=== PATIENT | male | born 1960 | race Caucasian/White ===

== ENCOUNTER 2017-09-22 12:10 | Inpatient (IN) | payer OTHER ==
[~2017-09-22] VITALS: Ht 188 cm; Wt 68.2 kg
[2017-09-22 12:14] VITALS: BP 124/75; PULSE 81; RESP 23; TEMP 98.5; O2SAT 98
[2017-09-22] MEDS ORDERED: ONDANSETRON HCL 4 MG/2 ML VIAL IV PUSH ONE (12:30)
[2017-09-22] MEDS ORDERED: MORPHINE SULFATE 2 MG/ML SYRINGE IV PUSH ONE (12:30)
[2017-09-22] MEDS ORDERED: TETANUS/DIPHTHERIA TOXOID ADULT 0.5 ML VIAL IM ONE (12:30)
[2017-09-22 12:50] LABS: AUTOMATED NEUTROPHIL # 6.1 TH/MM3 (1.8-7.7); BASOPHIL # 0.1 TH/MM3 (0-0.2); BASOPHIL % 0.9 % (0.0-2.0); EOSINOPHIL # 0.1 TH/MM3 (0-0.4); EOSINOPHIL % 1.5 % (0.0-4.0); HEMOGLOBIN 12.2 GM/DL (13.0-17.0); LYMPH % 24.9 % (9.0-44.0); LYMPHOCYTE # 2.3 TH/MM3 (1.0-4.8); MEAN CELL VOLUME 86.6 FL (80.0-100.0); MEAN CORPUSCULAR HEMOGLOBIN 29.3 PG (27.0-34.0); MEAN CORPUSCULAR HGB CONC 33.8 % (32.0-36.0); MEAN PLATELET VOLUME 8.7 FL (7.0-11.0); MONO % 7.5 % (0.0-8.0); MONOCYTE # 0.7 TH/MM3 (0-0.9); NEUT % 65.2 % (16.0-70.0); PLATELET COUNT 280 TH/MM3 (150-450); RED BLOOD COUNT 4.15 MIL/MM3 (4.50-5.90); RED CELL DISTRIBUTION WIDTH 12.6 % (11.6-17.2); WHITE BLOOD COUNT 9.3 TH/MM3 (4.0-11.0)
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
[2017-09-22 13:20] LABS: BICARBONATE 27.8 MEQ/L (21.0-32.0); CALCIUM 8.6 MG/DL (8.5-10.1); CREATININE 1.05 MG/DL (0.60-1.30); MAGNESIUM 1.9 MG/DL (1.5-2.5)
[2017-09-22] MEDS ORDERED: HYDROmorphone HCL PF 1 MG/ML VIAL IV PUSH ONE (13:30)
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
[2017-09-22] MEDS ORDERED: HYDROmorphone HCL PF 2 MG/ML VIAL IV PUSH ONE ×2 (13:45→16:45)
[2017-09-22] MEDS: SODIUM CHLOR 0.9% 1000 ML INJ 1,000 ML IV SCH ×2 (13:49→23:49)
[2017-09-22] MEDS ORDERED: ONDANSETRON HCL 4 MG/2 ML VIAL IVP PRN (14:00)
[2017-09-22] MEDS ORDERED: NALOXONE HCL 0.4 MG/ML AMP IV PUSH PRN (14:00)
[2017-09-22] MEDS ORDERED: SODIUM CHLORIDE 0.9% FLUSH 10 ML FLUSH IV FLUSH PRN (14:00)
[2017-09-22] MEDS ORDERED: ACETAMINOPHEN/HYDROcodone 325 MG/10 MG TAB PO PRN (14:00)
[2017-09-22 14:18] VITALS: BP 129/69; PULSE 80; RESP 18; TEMP 98.3; O2SAT 98
[2017-09-22 14:41] VITALS: BP 133/85; PULSE 71; RESP 15; O2SAT 97
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
[2017-09-22] MEDS ORDERED: NICOTINE 21 MG/24 HR PATCH T-DERMAL ONE (16:45)
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
[2017-09-22 20:00] VITALS: BP 130/78; PULSE 79; RESP 18; TEMP 97.9; O2SAT 97
[2017-09-22] MEDS: oxyCODONE/ACETAMINOPHEN 10 MG/325 MG TAB PO PRN (20:39)
[2017-09-22] MEDS ORDERED: INSULIN HUMAN REGULAR 1,000 UNITS/10 ML VIAL SQ PRN (22:30)
[2017-09-22] MEDS ORDERED: METOPROLOL TARTRATE 25 MG TAB PO PRN (22:30)
[2017-09-22] MEDS ORDERED: SODIUM CHLORID 0.9% 500 ML IV PRN (22:30)
[2017-09-22] MEDS ORDERED: LACTATED RINGER'S 1000 ML IV PRN (22:30)
[2017-09-22] MEDS ORDERED: POVIDONE IODINE 5% (ANTISEPSIS KIT) 4 APPLICATIONS EACH NARE PRN (22:30)
[2017-09-22] MEDS ORDERED: CHLORHEXIDINE GLUCONATE 2 % 1 PACK (2 CLOTHS) TOPICAL PRN (22:30)
[2017-09-22] MEDS: HYDROmorphone HCL PF 2 MG/ML VIAL IV PUSH PRN (22:31)
[2017-09-22] MEDS: SODIUM CHLORIDE 0.9% FLUSH 10 ML FLUSH IV FLUSH SCH (22:31)
[2017-09-23 00:01] VITALS: BP 148/80; PULSE 84; RESP 18; TEMP 98; O2SAT 98
[2017-09-23] MEDS: oxyCODONE/ACETAMINOPHEN 10 MG/325 MG TAB PO PRN ×5 (00:52→22:55)
[2017-09-23] MEDS: HYDROmorphone HCL PF 2 MG/ML VIAL IV PUSH PRN ×4 (02:33→19:48)
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
[2017-09-23] MEDS ORDERED: ACETAMINOPHEN 1000 MG/100 ML 100 ML IV ONE (06:56)
[2017-09-23] MEDS ORDERED: VANCOMYCIN HCL 1000 MG VIAL ONE (07:05)
[2017-09-23] MEDS ORDERED: SODIUM CHLOR 0.9% 250 ML INJ 250 ML ONE (07:05)
[2017-09-23] MEDS ORDERED: GENTAMICIN SULFATE 80 MG/2 ML VIAL ONE (07:05)
[2017-09-23] MEDS ORDERED: ceFAZolin INJ 1,000 MG VIAL ONE (07:05)
[2017-09-23] MEDS ORDERED: BUPIVACAINE/EPINEPHRINE 0.5% PF 10 ML VIAL ONE (07:06)
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
[2017-09-23] MEDS: SODIUM CHLORIDE 0.9% FLUSH 10 ML FLUSH IV FLUSH SCH ×2 (09:00→19:48)
[2017-09-23] MEDS: REMOVE OLD PATCH T-DERMAL SCH (09:00)
[2017-09-23] MEDS ORDERED: diphenhydrAMINE HCL 25 MG CAP PO PRN (09:45)
--- NOTE | 2017-09-23 09:50 | PD.OP ---
cc: Segrey Stock MD Operative Report Date of Surgery: September 23, 2017 Preoperative Diagnosis: Left hip intertrochanteric fracture, bicondylar left tibial plateau fracture Postoperative Diagnosis: Procedure: Closed reduction and external fixation of left tibia bicondylar plateau fracture , intramedullary nail fixation left hip intertrochanteric fracture Surgeon: Sergey Stock Visual Designer(s): DOLORES Holloway PA-C The surgical procedure was assisted by my physician assistant scientist. My P.A. presence was necessary throughout this case for the manipulation and positioning of the surgical extremity. My P.A. was assisting me throughout the duration of this procedure. The skill set of a physician assistant scientist was medically necessary to complete this procedure. During the surgical case the surgical clinical reviewer was working at the back table and the physician assistant scientist was directly assisting me. Operation and Findings: Implants used: Orthofix, Biomet 13 mm 130 trochanteric nail This patient sustained an injury resulting in comminuted fractures of [left tibial plateau. He also had a left hip intertrochanteric fracture]. Patient was seen and evaluated preoperatively and found to have too much swelling to proceed with open reduction internal fixation of tibial plateau. Risk and benefits of surgery were discussed in depth with patient and informed consent was confirmed. Surgical site was marked. Patient was brought to operating room and placed on the OR table. Patient was given IV sedation and GETA. Patient received IV antibiotics and timeout procedure was performed. Operative leg was prepped with alcohol followed by Hibiclens and draped in the usual sterile fashion. Two small incisions were made along the anterior femur and the tibia. Soft tissue was dissected bluntly. Cannulas were placed down to the cortex of bone. Pin sites were predrilled. Synthes HEATH-coated pins were placed into the femur and tibia. Fluoroscopy was used to confirm appropriate pin placement. An external fixator construct was now created with clamps and bars. Next attention was turned to reduction. Traction was applied. Fracture was manipulated. Good alignment of the fracture was obtained. Fluoroscopy was used to confirm appropriate alignment of fracture. The external fixator was now tightened to hold reduction. Sterile dressings were applied. The soft tissue was reevaluated. Patient did have swelling around the knee and calf but compartments were soft and compressible with no signs of compartment syndrome. Patient was now repositioned onto a fracture table. Left hip was prepped with alcohol followed by DuraPrep and draped in usual sterile fashion procedure began with reduction of fracture. Traction was applied. The leg was manipulated to achieve reduction. Excellent reduction was achieved. Fluoroscopy was used to confirm reduction. A three inch incision was made proximal to the trochanter. Subcutaneous tissue was dissected bluntly. Guidepin was placed at the tip of the trochanter and advanced into the femoral canal. Fluoroscopy confirmed appropriate guidepin placement. A opening reamer was placed over the guidepin. The Biomet 13 mm 130 nail was attached to the insertion handle. Nail was now placed through the tip of the trochanter into the femoral canal. Fluoroscopy confirmed appropriate nail placement. A second incision was made over the lateral thigh. Cannulas were placed through the insertion handle down to the femur. Guidepin was now placed through the femoral nail into the center of the femoral head. Fluoroscopy confirmed appropriate guidepin placement. Screw length was measured. Cannulated drill was placed over the guidepin. Appropriate length lag screw was now placed. Traction was released and compression was applied. The set screw was now tightened in dynamic mode. Using the insertion handle as a guide a distal interlocking screw was drilled and placed. Final fluoroscopy revealed well aligned fracture with well-placed hardware. Incision was closed with 3-0 Vicryl and nirmal. Sterile dressings were applied. Patient was awakened and transferred to recovery room. Sergey Stock MD September 23, 2017 09:50
[2017-09-23] MEDS ORDERED: DO NOT ADM ANY ANTICOAGULANT DRUGS PRN (10:10)
[2017-09-23] MEDS ORDERED: *MEPERIDINE 25 MG INJ VIAL PERIprocedural Use ONLY ONE (10:14)
[2017-09-23] MEDS ORDERED: MIDAZOLAM HCL 2 MG/2 ML VIAL ONE (10:16)
[2017-09-23] MEDS ORDERED: *HYDROmorphone PF 0.5 MG/0.5 ML PERIprocedure ONLY ONE ×3 (10:53→11:31)
[2017-09-23] MEDS ORDERED: Post-op Orders (for Pharmacy) XX ONE (11:03)
[2017-09-23] MEDS: LACTATED RINGER'S 1000 ML INJ 1,000 ML IV SCH ×2 (11:10→23:30)
[2017-09-23] MEDS ORDERED: DEXAMETHASONE SOD PHOS 20 MG/5 ML VIAL IV PUSH ONE (11:15)
[2017-09-23] MEDS: KETOROLAC TROMETHAMINE 30 MG/ML (IVP) VIAL IVP SCH ×3 (11:30→22:55)
[2017-09-23 12:00] VITALS: BP 165/75; PULSE 73; RESP 18; TEMP 98.2; O2SAT 98
[2017-09-23] MEDS ORDERED: PROPOFOL 200 MG/20 ML AMP IV ONE (12:00)
[2017-09-23] MEDS ORDERED: ONDANSETRON HCL 4 MG/2 ML VIAL IV ONE (12:00)
[2017-09-23] MEDS ORDERED: PHENYLEPH/NS 1000 MCG/10 ML SYR IV ONE (12:00)
[2017-09-23] MEDS ORDERED: DEXAMETHASONE SOD PHOS 4 MG/ML VIAL IV ONE (12:00)
[2017-09-23] MEDS: NICOTINE 21 MG/24 HR PATCH T-DERMAL SCH (12:51)
[2017-09-23] MEDS: SODIUM CHLOR 0.9% 1000 ML INJ 1,000 ML IV SCH ×2 (12:54→19:49)
[2017-09-23 13:06] LABS: AUTOMATED NEUTROPHIL # 12.9 TH/MM3 (1.8-7.7); BASOPHIL % 0.2 % (0.0-2.0); HEMATOCRIT 29.2 % (39.0-51.0); HEMOGLOBIN 9.9 GM/DL (13.0-17.0); LYMPH % 3.3 % (9.0-44.0); LYMPHOCYTE # 0.5 TH/MM3 (1.0-4.8); MEAN CELL VOLUME 87.7 FL (80.0-100.0); MEAN CORPUSCULAR HEMOGLOBIN 29.9 PG (27.0-34.0); MEAN CORPUSCULAR HGB CONC 34.1 % (32.0-36.0); MEAN PLATELET VOLUME 8.9 FL (7.0-11.0); MONO % 2.7 % (0.0-8.0); MONOCYTE # 0.4 TH/MM3 (0-0.9); NEUT % 93.8 % (16.0-70.0); PLATELET COUNT 201 TH/MM3 (150-450); RED BLOOD COUNT 3.33 MIL/MM3 (4.50-5.90); RED CELL DISTRIBUTION WIDTH 12.7 % (11.6-17.2); WHITE BLOOD COUNT 13.8 TH/MM3 (4.0-11.0)
[2017-09-23 13:29] LABS: ALBUMIN 3.2 GM/DL (3.4-5.0); ALT (GPT) 23 U/L (12-78); AST (GOT) 21 U/L (15-37); BICARBONATE 26.5 MEQ/L (21.0-32.0); BLOOD UREA NITROGEN 7 MG/DL (7-18); CALCIUM 8.1 MG/DL (8.5-10.1); CHLORIDE 102 MEQ/L (98-107); CREATININE 0.85 MG/DL (0.60-1.30); GLOMERULAR FILTRATION RATE 93 ML/MIN (>89); GLUCOSE,RANDOM 136 MG/DL (74-106); SODIUM (NA) 135 MEQ/L (136-145)
[2017-09-23 13:32] LABS: ALKALINE PHOSPHATASE 60 U/L (45-117); TOTAL BILIRUBIN ADULT 0.6 MG/DL (0.2-1.0); TOTAL PROTEIN 6.4 GM/DL (6.4-8.2)
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
[2017-09-23] MEDS ORDERED: ZOLPIDEM TARTRATE 5 MG TAB PO PRN (13:45)
--- NOTE | 2017-09-23 14:08 | RADRPT ---
EXAM DATE/TIME: 09/23/2017 09:22 [facility] COMPARISON: TIBIA/FIBULA LEFT (AP/LAT), September 22, 2017, 12:52. INDICATIONS : Closed reduction external fixation left knee. MEDICAL HISTORY : None. SURGICAL HISTORY : None. ENCOUNTER: Initial ACUITY: 1 day PAIN SCORE: Non-responsive. LOCATION: Left Knee FINDINGS: 2 images recorded digitally in the operating room oozing C-arm CONCLUSION: Intraoperative images. Len Serrano MD on September 23, 2017 at 14:05 Board Certified Radiologist. This report was verified electronically.
--- NOTE | 2017-09-23 14:08 | RADRPT ---
EXAM DATE/TIME: 09/23/2017 09:22 [facility] COMPARISON: No previous studies available for comparison. INDICATIONS : ORIF left troch nail. MEDICAL HISTORY : None. SURGICAL HISTORY : None. ENCOUNTER: Initial ACUITY: 1 day PAIN SCORE: Non-responsive. LOCATION: Left Hip FINDINGS: 4 images were recorded digitally in the operating room using C-arm for placement of intramedullary ro d and trochanteric nail. CONCLUSION: Intraoperative images. Len Serrano MD on September 23, 2017 at 14:06 Board Certified Radiologist. This report was verified electronically.
[2017-09-23 15:25] VITALS: BP 141/79; PULSE 75; RESP 18; TEMP 97.2; O2SAT 94
--- NOTE | 2017-09-23 15:31 | EKG ---
Date Performed: 09/22/2017 Time Performed: 22:34:38 PTAGE: 57 years EKG: Sinus rhythm POSSIBLE RIGHT VENTRICULAR CONDUCTION DELAY POSSIBLE LEFT VENTRICULAR HYPERTROPHY ABNORMAL ECG NO PREVIOUS TRACING Short sinus pauses. DOCTOR: Priscila Chaney Interpretating Date/Time 09/23/2017 15:30:07
--- NOTE | 2017-09-23 17:21 | RADRPT ---
EXAM DATE/TIME: 09/23/2017 16:50 [facility] COMPARISON: KNEE LEFT LTD (1 OR 2VWS), September 23, 2017, 9:22. INDICATIONS : Closed reduction external fixation left knee. RADIATION DOSE: 7.29 CTDIvol (mGy) MEDICAL HISTORY : None SURGICAL HISTORY : None. ENCOUNTER: Subsequent ACUITY: 2 days PAIN SCALE: 4/10 LOCATION: Left Knee TECHNIQUE: Volumetric scanning of the knee was performed. Using automated exposure control and adjustment of th e mA and/or kV according to patient size, radiation dose was kept as low as reasonably achievable to obtain optimal diagnostic quality images. DICOM format image data is available electronically for re view and comparison. FINDINGS: There is comminuted fractures of the proximal tibia and fibula. There is mild varus angulation of th e major fracture components. In the tibia there is a transverse fracture component causing angulatio n and lateral displacement, a dominant longitudinal fracture through the midline lateral metaphysis e xtending to the articular surface, at least 3 fracture lines extending to the tibial spine, inferior impaction of the lateral tibial plateau and 1.2 cm widening of the largest intra-articular fracture l ine in AP dimension. In the proximal fibula, there are multiple comminuted fracture lines in the metaphysis and epiphysis mild anterior angulation. There is a fat/fluid level in suprapatellar bursa. CONCLUSION: Comminuted intra-articular fractures of the proximal tibia with displacement and angulation at least 3 fracture lines extend intra-articular. There is also a transverse fracture component through the m etaphysis. Multiple comminuted fractures of the proximal fibula. Len Serrano MD on September 23, 2017 at 17:14 Board Certified Radiologist. This report was verified electronically.
[2017-09-23] MEDS: ceFAZolin 2 GM PREMIX 50 ML IV SCH (17:22)
[2017-09-23 20:00] VITALS: BP 125/66; PULSE 82; RESP 18; TEMP 98.8; O2SAT 96
[2017-09-24 00:01] VITALS: BP_SYST 122; BP_SYST 142; BP_DIAS 57; BP_DIAS 67; PULSE 69; PULSE 84; RESP 18; TEMP 97.7; TEMP 99.2; O2SAT 95; O2SAT 96
[2017-09-24] MEDS: HYDROmorphone HCL PF 2 MG/ML VIAL IV PUSH PRN ×5 (00:33→23:05)
[2017-09-24] MEDS: ceFAZolin 2 GM PREMIX 50 ML IV SCH ×2 (00:33→08:55)
[2017-09-24] MEDS: oxyCODONE/ACETAMINOPHEN 10 MG/325 MG TAB PO PRN ×5 (02:51→20:25)
[2017-09-24 03:59] LABS: AUTOMATED NEUTROPHIL # 12.9 TH/MM3 (1.8-7.7); BASOPHIL % 0.1 % (0.0-2.0); HEMATOCRIT 24.9 % (39.0-51.0); HEMOGLOBIN 8.7 GM/DL (13.0-17.0); LYMPH % 5.8 % (9.0-44.0); LYMPHOCYTE # 0.9 TH/MM3 (1.0-4.8); MEAN CELL VOLUME 87.6 FL (80.0-100.0); MEAN CORPUSCULAR HEMOGLOBIN 30.5 PG (27.0-34.0); MEAN CORPUSCULAR HGB CONC 34.8 % (32.0-36.0); MEAN PLATELET VOLUME 8.9 FL (7.0-11.0); MONO % 6.8 % (0.0-8.0); NEUT % 87.3 % (16.0-70.0); PLATELET COUNT 176 TH/MM3 (150-450); RED BLOOD COUNT 2.84 MIL/MM3 (4.50-5.90); RED CELL DISTRIBUTION WIDTH 12.4 % (11.6-17.2); WHITE BLOOD COUNT 14.8 TH/MM3 (4.0-11.0)
[2017-09-24 04:00] VITALS: BP 126/63; PULSE 77; RESP 18; TEMP 98.3; O2SAT 95
[2017-09-24 04:23] LABS: BICARBONATE 27.6 MEQ/L (21.0-32.0); CALCIUM 8.1 MG/DL (8.5-10.1); CREATININE 0.91 MG/DL (0.60-1.30)
[2017-09-24] MEDS: KETOROLAC TROMETHAMINE 30 MG/ML (IVP) VIAL IVP SCH ×4 (04:47→23:05)
[2017-09-24] MEDS: SODIUM CHLOR 0.9% 1000 ML INJ 1,000 ML IV SCH ×2 (05:49→14:13)
--- NOTE | 2017-09-24 07:08 | PD.ORT.PN ---
Subjective Subjective Remarks Pain controlled. Swelling improved. No new complaints Objective Vitals Vital Signs Date Time Temp Pulse Resp B/P (MAP) Pulse Ox O2 Delivery O2 Flow Rate FiO2 09/24/17 04:00 98.3 77 18 126/63 (84) 95 09/24/17 00:01 99.2 84 18 122/57 (78) 96 09/23/17 20:00 98.8 82 18 125/66 (85) 96 09/23/17 15:25 97.2 75 18 141/79 (99) 94 09/23/17 12:00 98.2 73 18 165/75 (105) 98 09/23/17 11:30 97.5 84 15 168/87 (114) 100 Nasal Cannula 2 09/23/17 11:15 80 18 162/87 (112) 100 Nasal Cannula 2 09/23/17 11:00 84 20 174/90 (118) 100 Nasal Cannula 2 09/23/17 10:45 78 22 165/82 (109) 100 Nasal Cannula 2 09/23/17 10:30 80 24 177/79 (111) 100 Nasal Cannula 2 09/23/17 10:15 87 25 157/87 (110) 100 Nasal Cannula 2 09/23/17 10:11 98.5 72 20 126/64 (84) 94 Nasal Cannula 2 I/O 09/23/17 09/23/17 09/23/17 09/24/17 09/24/17 09/24/17 07:00 15:00 23:00 07:00 15:00 23:00 Intake Total 990 ml 650 ml Output Total 30 ml 300 ml 900 ml Balance 960 ml -300 ml -250 ml Intake Oral 240 ml 650 ml IV Total 100 ml Other 650 ml Output Urine Total 300 ml 900 ml Estimated Blood Loss 30 ml # Voids 3 # Bowel Movements 0 0 Result Diagram: 09/24/17 0324 09/24/17 0324 Imaging Last 24 hours Impressions Chest X-Ray 09/22/17 1308 Signed Impressions: Service Date/Time: Friday, September 22, 2017 13:10 - CONCLUSION: No acute disease. Sb Noel MD Tibia/Fibula X-Ray 09/22/17 1220 Signed Impressions: Service Date/Time: Friday, September 22, 2017 12:52 - CONCLUSION: Severely comminuted ventricular fracture involving the proximal tibia. Comminuted nondisplaced fracture involving the proximal fibula. Sb Noel MD Hip and Pelvis X-Ray 09/22/17 1220 Signed Impressions: Service Date/Time: Friday, September 22, 2017 14:06 - CONCLUSION: 1. Oblique fracture through the trochanteric region of the proximal left femur. Sb Noel MD Elbow X-Ray 09/22/17 1220 Signed Impressions: Service Date/Time: Friday, September 22, 2017 13:07 - CONCLUSION: No acute fracture or joint dislocation. Sb Noel MD Objective Remarks Left lower extremity: Clean dry dressings over hip. External fixator in place bridging knee. Mild drainage. Swelling of +3 with fracture blisters both medially and laterally over the plateau. Compartments swollen semi-soft. Distally intact sensation with active movement of all toes. Active dorsiflexion plantar flexion of foot Assessment & Plan Assessment and Plan Left intertrochanteric femur fracture status post IM nail POD 1 Left tibial plateau fracture status post external fixation POD 1 Daily dressing changes beginning POD 2 over hip. Pin care twice daily Toradol We will continue to evaluate swelling. One swelling is improved and skin is healthy for her incision we will plan on surgery. This will take 3-5 days at the earliest to be ready Nonweightbearing left lower extremity Stevenson Lan Jr. September 24, 2017 07:08
[2017-09-24 08:00] VITALS: BP 133/64; PULSE 74; RESP 16; TEMP 98.1; O2SAT 98
[2017-09-24] MEDS: REMOVE OLD PATCH T-DERMAL SCH (08:55)
[2017-09-24] MEDS: NICOTINE 21 MG/24 HR PATCH T-DERMAL SCH (08:55)
[2017-09-24] MEDS: SODIUM CHLORIDE 0.9% FLUSH 10 ML FLUSH IV FLUSH SCH ×2 (08:56→20:25)
[2017-09-24] MEDS: ENOXAPARIN SODIUM 40 MG/0.4 ML SYRINGE SQ SCH (08:56)
[2017-09-24 12:00] VITALS: BP 111/72; PULSE 66; RESP 16; TEMP 98.2; O2SAT 97
[2017-09-24] MEDS: LACTATED RINGER'S 1000 ML INJ 1,000 ML IV SCH (12:00)
[2017-09-24 16:00] VITALS: BP 132/60; PULSE 67; RESP 16; TEMP 98.4; O2SAT 97
[2017-09-24 20:00] VITALS: BP 122/60; PULSE 89; RESP 15; TEMP 98.3; O2SAT 98
[2017-09-24] MEDS: MAGNESIUM HYDROXIDE SUSP 30 ML CUP PO PRN (20:33)
[2017-09-24] MEDS ORDERED: DOCUSATE SODIUM 50 MG/SENNA 8.6 MG TAB PO ONE (23:15)
[2017-09-24] MEDS ORDERED: MAGNESIUM HYDROXIDE SUSP 30 ML CUP PO ONE (23:15)
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
[2017-09-25] VITALS: BP 116/57; PULSE 73; RESP 15; TEMP 98.4; O2SAT 94
[2017-09-25] MEDS: LACTATED RINGER'S 1000 ML INJ 1,000 ML IV SCH ×2 (00:30→13:00)
[2017-09-25] MEDS: oxyCODONE/ACETAMINOPHEN 10 MG/325 MG TAB PO PRN ×6 (01:02→22:02)
[2017-09-25] MEDS: SODIUM CHLOR 0.9% 1000 ML INJ 1,000 ML IV SCH ×3 (01:49→21:49)
[2017-09-25] MEDS: HYDROmorphone HCL PF 2 MG/ML VIAL IV PUSH PRN ×6 (03:17→23:39)
[2017-09-25] MEDS: KETOROLAC TROMETHAMINE 30 MG/ML (IVP) VIAL IVP SCH (05:24)
[2017-09-25 08:00] VITALS: BP 149/77; PULSE 79; RESP 17; TEMP 97.9; O2SAT 96
[2017-09-25] MEDS: NICOTINE 21 MG/24 HR PATCH T-DERMAL SCH (09:00)
[2017-09-25] MEDS: REMOVE OLD PATCH T-DERMAL SCH (09:00)
--- NOTE | 2017-09-25 09:04 | PD.ORT.PN ---
Subjective Subjective Remarks Pain controlled. Swelling improved. No new complaints Objective Vitals Vital Signs Date Time Temp Pulse Resp B/P (MAP) Pulse Ox O2 Delivery O2 Flow Rate FiO2 09/25/17 08:00 97.9 79 17 149/77 (101) 96 09/25/17 00:00 98.4 73 15 116/57 (76) 94 09/24/17 20:00 98.3 89 15 122/60 (80) 98 09/24/17 16:00 98.4 67 16 132/60 (84) 97 09/24/17 12:00 98.2 66 16 111/72 (85) 97 I/O 09/24/17 09/24/17 09/24/17 09/25/17 09/25/17 09/25/17 07:00 15:00 23:00 07:00 15:00 23:00 Intake Total 650 ml 1000 ml 450 ml Output Total 900 ml 800 ml 800 ml Balance -250 ml 200 ml -350 ml Intake Oral 650 ml 1000 ml 450 ml Output Urine Total 900 ml 800 ml 800 ml # Bowel Movements 0 0 1 Result Diagram: 09/24/17 0324 09/24/17 0324 Imaging Last 24 hours Impressions Chest X-Ray 09/22/17 1308 Signed Impressions: Service Date/Time: Friday, September 22, 2017 13:10 - CONCLUSION: No acute disease. Sb Noel MD Tibia/Fibula X-Ray 09/22/17 1220 Signed Impressions: Service Date/Time: Friday, September 22, 2017 12:52 - CONCLUSION: Severely comminuted ventricular fracture involving the proximal tibia. Comminuted nondisplaced fracture involving the proximal fibula. Sb Noel MD Hip and Pelvis X-Ray 09/22/17 1220 Signed Impressions: Service Date/Time: Friday, September 22, 2017 14:06 - CONCLUSION: 1. Oblique fracture through the trochanteric region of the proximal left femur. Sb Noel MD Elbow X-Ray 09/22/17 1220 Signed Impressions: Service Date/Time: Friday, September 22, 2017 13:07 - CONCLUSION: No acute fracture or joint dislocation. Sb Noel MD Objective Remarks Left lower extremity: Clean dry dressings over hip. External fixator in place bridging knee. Mild drainage. Swelling of +3 with fracture blisters both medially and laterally over the plateau. Medial blister has lost pressure and is compressed. Compartments swollen semi-soft. Distally intact sensation with active movement of all toes. Active dorsiflexion plantar flexion of foot Assessment & Plan Assessment and Plan Left intertrochanteric femur fracture status post IM nail POD 2 Left tibial plateau fracture status post external fixation POD 2 Daily dressing changes over hip. Pin care twice daily Lovenox Incentive spirometry Toradol We will continue to evaluate swelling. One swelling is improved and skin is healthy for her incision we will plan on surgery. This will take 3-5 days at the earliest to be ready Nonweightbearing left lower extremity Stevenson Lan Jr. September 25, 2017 09:04
[2017-09-25] MEDS: ENOXAPARIN SODIUM 40 MG/0.4 ML SYRINGE SQ SCH (09:41)
[2017-09-25] MEDS: SODIUM CHLORIDE 0.9% FLUSH 10 ML FLUSH IV FLUSH SCH ×2 (09:49→22:01)
[2017-09-25 11:57] VITALS: BP 116/54; PULSE 78; RESP 17; TEMP 97.9; O2SAT 95
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
[2017-09-25 16:00] VITALS: BP 104/55; PULSE 87; RESP 17; TEMP 98.7; O2SAT 98
[2017-09-25 20:00] VITALS: BP 121/74; PULSE 88; RESP 18; TEMP 98.6; O2SAT 95
[2017-09-26] VITALS (7 sets, daily range): BP systolic 114–148; BP diastolic 64–86; PULSE 79–89; RESP 16–19; TEMP 98.3–99.4; O2SAT 93–96
[2017-09-26] MEDS: LACTATED RINGER'S 1000 ML INJ 1,000 ML IV SCH ×2 (01:18→07:58)
[2017-09-26] MEDS: oxyCODONE/ACETAMINOPHEN 10 MG/325 MG TAB PO PRN ×4 (04:38→18:04)
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
[2017-09-26] MEDS: SODIUM CHLOR 0.9% 1000 ML INJ 1,000 ML IV SCH ×2 (07:49→12:51)
[2017-09-26] MEDS: REMOVE OLD PATCH T-DERMAL SCH (07:50)
[2017-09-26] MEDS: ENOXAPARIN SODIUM 40 MG/0.4 ML SYRINGE SQ SCH (07:50)
[2017-09-26] MEDS: NICOTINE 21 MG/24 HR PATCH T-DERMAL SCH (07:50)
[2017-09-26] MEDS: MAGNESIUM HYDROXIDE SUSP 30 ML CUP PO PRN (07:50)
[2017-09-26] MEDS: HYDROmorphone HCL PF 2 MG/ML VIAL IV PUSH PRN ×4 (07:51→20:52)
[2017-09-26] MEDS: SODIUM CHLORIDE 0.9% FLUSH 10 ML FLUSH IV FLUSH SCH ×2 (07:52→20:51)
[2017-09-26] MEDS ORDERED: CYCLOBENZAPRINE HCL 10 MG TAB PO ONE (18:00)
[2017-09-27] VITALS: BP 136/62; PULSE 99; RESP 18; TEMP 98.8; O2SAT 95
[2017-09-27] MEDS: oxyCODONE/ACETAMINOPHEN 10 MG/325 MG TAB PO PRN ×4 (01:44→21:14)
[2017-09-27] MEDS: LACTATED RINGER'S 1000 ML INJ 1,000 ML IV SCH (02:26)
[2017-09-27] MEDS: SODIUM CHLOR 0.9% 1000 ML INJ 1,000 ML IV SCH (02:28)
[2017-09-27 04:00] VITALS: BP 123/75; PULSE 94; RESP 19; TEMP 98.4; O2SAT 95
[2017-09-27] MEDS: HYDROmorphone HCL PF 2 MG/ML VIAL IV PUSH PRN ×3 (05:05→16:08)
--- NOTE | 2017-09-27 06:49 | PD.ORT.PN ---
Subjective Subjective Remarks POD 4 s/p IMN left hip s/p left tib plat exfix doign well. pain controlled Objective Vitals Vital Signs Date Time Temp Pulse Resp B/P (MAP) Pulse Ox O2 Delivery O2 Flow Rate FiO2 09/27/17 05:37 18 09/27/17 04:00 98.4 94 19 123/75 (91) 95 09/27/17 02:26 18 09/27/17 00:00 98.8 99 18 136/62 (86) 95 09/26/17 23:15 Room Air 09/26/17 20:00 98.6 83 19 148/67 (94) 95 09/26/17 18:06 98.6 09/26/17 16:32 99.4 85 16 133/71 (91) 96 09/26/17 12:15 98.7 79 17 114/64 (81) 96 09/26/17 07:47 98.3 84 17 140/69 (92) 95 09/26/17 07:47 Room Air I/O 09/26/17 09/26/17 09/26/17 09/27/17 09/27/17 09/27/17 07:00 15:00 23:00 07:00 15:00 23:00 Intake Total 420 ml 900 ml Output Total 350 ml 750 ml Balance 70 ml 150 ml Intake Oral 420 ml 900 ml Output Urine Total 350 ml 750 ml # Voids 2 # Bowel Movements 0 Result Diagram: 09/24/17 0324 09/24/17 0324 Imaging Last 24 hours Impressions Chest X-Ray 09/22/17 1308 Signed Impressions: Service Date/Time: Friday, September 22, 2017 13:10 - CONCLUSION: No acute disease. Sb Noel MD Tibia/Fibula X-Ray 09/22/17 1220 Signed Impressions: Service Date/Time: Friday, September 22, 2017 12:52 - CONCLUSION: Severely comminuted ventricular fracture involving the proximal tibia. Comminuted nondisplaced fracture involving the proximal fibula. Sb Noel MD Hip and Pelvis X-Ray 09/22/17 1220 Signed Impressions: Service Date/Time: Friday, September 22, 2017 14:06 - CONCLUSION: 1. Oblique fracture through the trochanteric region of the proximal left femur. Sb Noel MD Elbow X-Ray 09/22/17 1220 Signed Impressions: Service Date/Time: Friday, September 22, 2017 13:07 - CONCLUSION: No acute fracture or joint dislocation. Sb Noel MD Objective Remarks Left lower extremity: Clean dry dressings over hip. External fixator in place bridging knee. Mild drainage. Swelling of +2 with fracture blisters both medially and laterally over the plateau. Compartments swollen semi-soft. Distally intact sensation with active movement of all toes. Active dorsiflexion plantar flexion of foot Assessment & Plan Assessment and Plan 1) Left intertrochanteric femur fracture status post IM nail POD 4 2) Left tibial plateau fracture status post external fixation POD 4 Daily dressing changes over hip. Pin care twice daily Lovenox Incentive spirometry Toradol We will continue to evaluate swelling. One swelling is improved and skin is healthy for her incision we will plan on surgery. Nonweightbearing left lower extremity NPO after MN in case swelling is appropriate Jake Hutton PA/Mechanical Engineering Director PA September 27, 2017 06:49
[2017-09-27 08:00] VITALS: BP 134/70; PULSE 84; RESP 18; TEMP 97.6; O2SAT 95
[2017-09-27] MEDS: MAGNESIUM HYDROXIDE SUSP 30 ML CUP PO PRN (08:10)
[2017-09-27] MEDS: ENOXAPARIN SODIUM 40 MG/0.4 ML SYRINGE SQ SCH (08:10)
[2017-09-27] MEDS: NICOTINE 21 MG/24 HR PATCH T-DERMAL SCH (08:12)
[2017-09-27] MEDS: SODIUM CHLORIDE 0.9% FLUSH 10 ML FLUSH IV FLUSH SCH ×2 (08:12→21:14)
[2017-09-27] MEDS: REMOVE OLD PATCH T-DERMAL SCH (08:12)
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
--- NOTE | 2017-09-27 09:56 | HHI.FF ---
Face to Face Verification Diagnosis: (1) Intertrochanteric fracture of left hip (2) Tibia/fibula fracture Physical Therapy Order: Evaluate and Treat, Improve ambulation, Strength and gait training Home Health Nursing Order: Medical education Signs/symptoms of disease process Medication education-adverse effect Nursing assessment with vital signs I have seen patient Gaurav German on 09/27/17. My clinical findings support the need for the requested home health care services because: Deconditioned w/ increased weakness I certify that my clinical findings support that this patient is homebound because: Unsafe to leave home unassisted Suraj Whittaker MD September 27, 2017 09:56
[2017-09-27] MEDS ORDERED: WALKER WHEELS/F1 MIS (09:57)
[2017-09-27 12:00] VITALS: BP 120/58; PULSE 85; RESP 18; TEMP 98.5; O2SAT 95
[2017-09-27 17:00] VITALS: BP 132/62; PULSE 93; RESP 18; TEMP 98; O2SAT 95
[2017-09-27 20:30] VITALS: BP 109/70; PULSE 91; RESP 17; TEMP 99.7; O2SAT 97
[2017-09-28 00:40] VITALS: BP 119/71; PULSE 90; RESP 16; TEMP 98.2; O2SAT 96
[2017-09-28] MEDS: oxyCODONE/ACETAMINOPHEN 10 MG/325 MG TAB PO PRN ×2 (01:15→05:12)
[2017-09-28 04:30] VITALS: BP 112/58; PULSE 97; RESP 17; TEMP 98.7; O2SAT 96
--- NOTE | 2017-09-28 06:50 | PD.ORT.PN ---
Subjective Subjective Remarks POD 5 s/p IMN left hip s/p left tib plat exfix doign well. pain controlled Objective Vitals Vital Signs Date Time Temp Pulse Resp B/P (MAP) Pulse Ox O2 Delivery O2 Flow Rate FiO2 09/28/17 00:40 98.2 90 16 119/71 (87) 96 09/27/17 20:30 99.7 91 17 109/70 (83) 97 09/27/17 17:00 98.0 93 18 132/62 (85) 95 09/27/17 12:00 98.5 85 18 120/58 (78) 95 09/27/17 08:00 97.6 84 18 134/70 (91) 95 I/O 09/27/17 09/27/17 09/27/17 09/28/17 09/28/17 09/28/17 07:00 15:00 23:00 07:00 15:00 23:00 Intake Total 900 ml 480 ml Output Total 750 ml Balance 150 ml 480 ml Intake Oral 900 ml 480 ml Output Urine Total 750 ml # Voids 3 # Bowel Movements 0 Result Diagram: 09/24/17 0324 09/24/17 0324 Imaging Last 24 hours Impressions Chest X-Ray 09/22/17 1308 Signed Impressions: Service Date/Time: Friday, September 22, 2017 13:10 - CONCLUSION: No acute disease. Sb Noel MD Tibia/Fibula X-Ray 09/22/17 1220 Signed Impressions: Service Date/Time: Friday, September 22, 2017 12:52 - CONCLUSION: Severely comminuted ventricular fracture involving the proximal tibia. Comminuted nondisplaced fracture involving the proximal fibula. Sb Noel MD Hip and Pelvis X-Ray 09/22/17 1220 Signed Impressions: Service Date/Time: Friday, September 22, 2017 14:06 - CONCLUSION: 1. Oblique fracture through the trochanteric region of the proximal left femur. Sb Noel MD Elbow X-Ray 09/22/17 1220 Signed Impressions: Service Date/Time: Friday, September 22, 2017 13:07 - CONCLUSION: No acute fracture or joint dislocation. Sb Noel MD Objective Remarks Left lower extremity: Clean dry dressings over hip. External fixator in place bridging knee. Mild drainage. Swelling of +2 with fracture blisters both medially and laterally over the plateau. Compartments swollen semi-soft. Distally intact sensation with active movement of all toes. Active dorsiflexion plantar flexion of foot Assessment & Plan Assessment and Plan 1) Left intertrochanteric femur fracture status post IM nail POD 5 2) Left tibial plateau fracture status post external fixation POD 5 Daily dressing changes over hip. Pin care twice daily Lovenox Incentive spirometry Toradol We will continue to evaluate swelling. One swelling is improved and skin is healthy for her incision we will plan on surgery. Nonweightbearing left lower extremity resume diet today npo after MN plan for surgery tomorrow Jake Hutton/Director Of Medical Staff Services ERNESTO September 28, 2017 06:50
[2017-09-28 08:00] VITALS: BP 117/63; PULSE 86; RESP 18; TEMP 98.1; O2SAT 97
[2017-09-28] MEDS: SODIUM CHLORIDE 0.9% FLUSH 10 ML FLUSH IV FLUSH SCH ×2 (08:52→21:00)
[2017-09-28] MEDS: NICOTINE 21 MG/24 HR PATCH T-DERMAL SCH (08:53)
[2017-09-28] MEDS: REMOVE OLD PATCH T-DERMAL SCH (08:53)
[2017-09-28] MEDS: HYDROmorphone HCL PF 2 MG/ML VIAL IV PUSH PRN (09:03)
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
[2017-09-28 12:00] VITALS: BP 114/64; PULSE 84; RESP 18; TEMP 98.2; O2SAT 94
[2017-09-28] MEDS: KETOROLAC TROMETHAMINE 30 MG/ML (IVP) VIAL IV PUSH SCH ×2 (12:56→18:01)
[2017-09-28 16:00] VITALS: BP 107/55; PULSE 91; RESP 18; TEMP 98.7; O2SAT 95
[2017-09-28] MEDS: oxyCODONE/ACETAMINOPHEN 5 MG/325 MG TAB PO PRN (18:28)
[2017-09-28 20:25] VITALS: BP 127/65; PULSE 96; RESP 16; TEMP 98.7; O2SAT 98
[2017-09-29 00:25] VITALS: BP 112/59; PULSE 80; RESP 16; TEMP 98.2; O2SAT 95
[2017-09-29] MEDS: oxyCODONE/ACETAMINOPHEN 10 MG/325 MG TAB PO PRN ×4 (01:56→20:52)
[2017-09-29] MEDS ORDERED: LACTATED RINGER'S 1000 ML IV PRN (04:30)
[2017-09-29] MEDS ORDERED: POVIDONE IODINE 5% (ANTISEPSIS KIT) 4 APPLICATIONS EACH NARE PRN (04:30)
[2017-09-29] MEDS ORDERED: CHLORHEXIDINE GLUCONATE 2 % 1 PACK (2 CLOTHS) TOPICAL PRN (04:30)
[2017-09-29] MEDS ORDERED: SODIUM CHLORID 0.9% 500 ML IV PRN (04:30)
[2017-09-29 04:40] VITALS: BP 129/69; PULSE 88; RESP 17; TEMP 98.4; O2SAT 97
[2017-09-29] MEDS ORDERED: GENTAMICIN SULFATE 80 MG/2 ML VIAL ONE (06:54)
[2017-09-29] MEDS ORDERED: VANCOMYCIN HCL 1000 MG VIAL ONE (06:54)
[2017-09-29] MEDS ORDERED: SODIUM CHLOR 0.9% 250 ML INJ 250 ML ONE (06:54)
[2017-09-29] MEDS ORDERED: ceFAZolin INJ 1,000 MG VIAL ONE (06:54)
[2017-09-29] MEDS: SODIUM CHLORIDE 0.9% FLUSH 10 ML FLUSH IV FLUSH SCH ×2 (09:00→20:53)
[2017-09-29] MEDS: NICOTINE 21 MG/24 HR PATCH T-DERMAL SCH (09:00)
[2017-09-29] MEDS: REMOVE OLD PATCH T-DERMAL SCH (09:00)
[2017-09-29] MEDS ORDERED: BACITRACIN TOP OINT 15 GM TUBE ONE (09:13)
--- NOTE | 2017-09-29 09:16 | PD.OP ---
cc: Sergey Stock MD Operative Report Date of Surgery: September 29, 2017 Preoperative Diagnosis: Displaced left bicondylar tibial plateau fracture Postoperative Diagnosis: Procedure: Removal of external fixation, open reduction fixation left tibial plateau Anesthesia: General Surgeon: Sergey Stock Press Department Manager(s): DOLORES Chavez PA-C The surgical procedure was assisted by my physician property management assistant. My P.A. presence was necessary throughout this case for the manipulation and positioning of the surgical extremity. My P.A. was assisting me throughout the duration of this procedure. The skill set of a physician property management assistant was medically necessary to complete this procedure. During the surgical case the surgical attendant was working at the back table and the physician property management assistant was directly assisting me. Operation and Findings: Implants used: Biomet Plan of activity: Nonweightbearing, no quad sets This patient was seen and evaluated preoperatively. Patient sustained an injury resulting a bicondylar left tibial plateau fracture. Informed consent was obtained preoperatively after detailed discussion of the risks and benefits of surgery. Risk of surgery including bleeding, infection, nonunion, painful hardware, stiffness, loss of motion, arthritis, need for knee replacement, as well as medical complications including blood clots, stroke, heart attack, and were discussed. I also discussed the possibility of using allograft bone graft . Preoperatively the operative site was marked. Soft tissue was evaluated preoperatively. The skin over the lateral knee and proximal tibia was intact with minimal swelling. There were resolving fracture blisters over the medial aspect of the tibia. Swelling had improved enough to proceed with surgery. Patient was brought to the operating room and placed on the operating room table. Intravenous sedation and general endotracheal anesthesia were administered. IV antibiotics were given and a time out procedure was preformed. Procedure began with removal of the external fixation. Clamps were loosened. Clamps and bars were removed. The pins were left in place this time. The operative leg was prepped with alcohol followed by Hibiclens and draped in the usual sterile fashion. Procedure began with a 5-inch curvilinear incision over the anterolateral left knee. Because of patient's previous fracture blisters along the medial aspect of the knee, only a lateral approach was utilized. Subcutaneous tissue was treated with Bovie. Iliotibial band was split in line with fibers. A sub- meniscal arthrotomy was created and the lateral articular surface was visualized. There was significant comminution and depression of the articular surface. A window was made in the metaphyseal region and bone tamps used to elevate the articular surface. At this point a temporary external fixator construct was reapplied. Traction was applied. Gross alignment was achieved with the external fixator. Articular surface reduced into excellent alignment. K-wires were used for provisional fixation. At this point cancellous bone graft was packed under the articular surface using a bone tamp. The cortical fragments were now reduced. Fluoroscopy revealed excellent alignment of fracture. A periarticular clamp was used to compress the medial lateral aspect of the tibial plateau. A proximal tibial plate was selected. The plate was provisionally held in place with K-wires. 3.5 cortical screws were used compress plate to bone distally, and a periarticular clamp was used to compress the medial and lateral tibial plateau fracture fragments together. Multiple locking screws were now placed proximally. Additional screws were placed in the shaft. K-wires were removed. Final fluoroscopy showed excellent alignment of fracture with well-placed hardware. The incision was thoroughly irrigated. Arthrotomy and iliotibial band closed with #1 Vicryl,. Subcutaneous tissues closed with 3-0 Vicryl and skin was closed with nirmal. Sterile dressings were applied. The external fixator and pins were now removed. The patient was transferred to recovery in stable condition. Sergey Stock MD September 29, 2017 09:16
[2017-09-29] MEDS ORDERED: Post-op Orders (for Pharmacy) XX ONE (09:30)
[2017-09-29] MEDS ORDERED: *morphine SULFATE 4 MG/ML PERIprocedure ONLY ONE ×3 (09:37→09:47)
[2017-09-29] MEDS: LACTATED RINGER'S 1000 ML INJ 1,000 ML IV SCH ×2 (09:40→20:53)
[2017-09-29] MEDS ORDERED: MORPHINE SULFATE 4 MG/ML INJ ONE (09:41)
[2017-09-29] MEDS ORDERED: MIDAZOLAM HCL 2 MG/2 ML VIAL ONE (09:41)
[2017-09-29] MEDS ORDERED: *HYDROmorphone PF 0.5 MG/0.5 ML PERIprocedure ONLY ONE ×3 (09:52→10:14)
[2017-09-29] MEDS ORDERED: DO NOT ADM ANY ANTICOAGULANT DRUGS PRN (10:15)
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
[2017-09-29] MEDS: CALCIUM/VITAMIN D 250 MG/125 U TAB PO SCH ×2 (11:13→15:40)
[2017-09-29 12:00] VITALS: BP 151/94; PULSE 99; RESP 16; TEMP 97.7; O2SAT 98
[2017-09-29] MEDS ORDERED: LIDOCAINE HCL 1% PF 5 ML SYRINGE OTHER ONE (12:00)
[2017-09-29] MEDS ORDERED: NEOSTIGMINE 5 MG/5 ML SYRINGE IV PUSH ONE (12:00)
[2017-09-29] MEDS ORDERED: ROCURONIUM INJ 50 MG/5 ML SYRINGE IV PUSH ONE (12:00)
[2017-09-29] MEDS ORDERED: PROPOFOL 200 MG/20 ML AMP IV ONE (12:00)
[2017-09-29] MEDS ORDERED: GLYCOPYRROLATE 1 MG/5 ML SYRINGE IV PUSH ONE (12:00)
[2017-09-29] MEDS ORDERED: DEXAMETHASONE SOD PHOS 4 MG/ML VIAL IV ONE (12:00)
[2017-09-29] MEDS ORDERED: ONDANSETRON HCL 4 MG/2 ML VIAL IV PUSH ONE (12:00)
[2017-09-29] MEDS ORDERED: LACTATED RINGER'S 1000 ML INJ 1,000 ML IV ONE (12:00)
--- NOTE | 2017-09-29 13:27 | RADRPT ---
EXAM DATE/TIME: 09/29/2017 08:48 [facility] COMPARISON: No previous studies available for comparison. INDICATIONS : ORIF left tibial plateau fracture. MEDICAL HISTORY : Unobtainable. SURGICAL HISTORY : Unobtainable. ENCOUNTER: Subsequent ACUITY: 1 week PAIN SCORE: Non-responsive. LOCATION: Left knee. FINDINGS: 4 digital films of the left knee reveal lateral cortical sideplate and screw fixation of tibial fract ure with satisfactory positioning and appearance of the hardware. Buddhist gross anatomic alignmen t. CONCLUSION: Satisfactory operative appearance Eriberto Foss MD on September 29, 2017 at 13:24 Board Certified Radiologist. This report was verified electronically.
[2017-09-29] MEDS: ceFAZolin 2 GM PREMIX 50 ML IV SCH ×2 (15:41→23:21)
[2017-09-29 16:00] VITALS: BP 141/71; PULSE 92; RESP 16; TEMP 98.5; O2SAT 99
[2017-09-29] MEDS: HYDROmorphone HCL PF 2 MG/ML VIAL IV PUSH PRN ×2 (19:36→23:20)
[2017-09-29 20:00] VITALS: BP 124/69; PULSE 115; RESP 19; TEMP 98.2; O2SAT 96
[2017-09-29] MEDS: VANCOMYCIN INJ 1,000 MG in SODIUM CHLOR 0.9% 250 ML INJ 250 ML IV SCH (20:42)
[2017-09-30] VITALS: BP 128/67; PULSE 96; RESP 19; TEMP 98.3; O2SAT 96
[2017-09-30] MEDS: oxyCODONE/ACETAMINOPHEN 5 MG/325 MG TAB PO PRN (01:28)
[2017-09-30] MEDS: HYDROmorphone HCL PF 2 MG/ML VIAL IV PUSH PRN ×4 (03:56→20:21)
[2017-09-30 04:00] VITALS: BP 131/65; PULSE 89; RESP 21; TEMP 98.1; O2SAT 95
[2017-09-30 05:17] LABS: HEMATOCRIT 22.1 % (39.0-51.0); HEMOGLOBIN 7.6 GM/DL (13.0-17.0)
[2017-09-30] MEDS: ceFAZolin 2 GM PREMIX 50 ML IV SCH ×3 (05:53→22:27)
[2017-09-30] MEDS: oxyCODONE/ACETAMINOPHEN 10 MG/325 MG TAB PO PRN ×5 (06:10→22:21)
[2017-09-30] MEDS: VANCOMYCIN INJ 1,000 MG in SODIUM CHLOR 0.9% 250 ML INJ 250 ML IV SCH ×2 (06:12→20:20)
--- NOTE | 2017-09-30 06:28 | PD.ORT.PN ---
Subjective Subjective Remarks POD 7 s/p IMN left hip POD 1 s/p ORIF left tibial plateau doing well. pain controlled. states pain last night but improved Objective Vitals Vital Signs Date Time Temp Pulse Resp B/P (MAP) Pulse Ox O2 Delivery O2 Flow Rate FiO2 09/30/17 04:00 98.1 89 21 131/65 (87) 95 09/30/17 00:00 98.3 96 19 128/67 (87) 96 09/29/17 20:00 98.2 115 19 124/69 (87) 96 09/29/17 16:00 98.5 92 16 141/71 (94) 99 09/29/17 12:00 97.7 99 16 151/94 (113) 98 09/29/17 10:15 98.0 94 14 166/78 (107) 100 Nasal Cannula 2 09/29/17 10:00 92 14 165/81 (109) 99 Nasal Cannula 2 09/29/17 09:45 94 14 170/81 (110) 100 Nasal Cannula 2 09/29/17 09:34 98.0 93 14 144/84 (104) 100 Nasal Cannula 2 I/O 09/29/17 09/29/17 09/29/17 09/30/17 09/30/17 09/30/17 07:00 15:00 23:00 07:00 15:00 23:00 Intake Total 360 ml 1480 ml 500 ml Output Total 200 ml 400 ml Balance 360 ml 1280 ml 100 ml Intake Oral 360 ml 480 ml 500 ml Other 1000 ml Output Urine Total 400 ml Estimated Blood Loss 200 ml # Voids 3 3 # Bowel Movements 0 0 Result Diagram: 09/30/17 0426 Imaging Last 24 hours Impressions Chest X-Ray 09/22/17 1308 Signed Impressions: Service Date/Time: Friday, September 22, 2017 13:10 - CONCLUSION: No acute disease. Sb Noel MD Tibia/Fibula X-Ray 09/22/17 1220 Signed Impressions: Service Date/Time: Friday, September 22, 2017 12:52 - CONCLUSION: Severely comminuted ventricular fracture involving the proximal tibia. Comminuted nondisplaced fracture involving the proximal fibula. Sb Noel MD Hip and Pelvis X-Ray 09/22/17 1220 Signed Impressions: Service Date/Time: Friday, September 22, 2017 14:06 - CONCLUSION: 1. Oblique fracture through the trochanteric region of the proximal left femur. Sb Noel MD Elbow X-Ray 09/22/17 1220 Signed Impressions: Service Date/Time: Friday, September 22, 2017 13:07 - CONCLUSION: No acute fracture or joint dislocation. Sb Noel MD Objective Remarks Left lower extremity: dressings clean and dry. intact. NVI. +CKS Assessment & Plan Assessment and Plan 1) Left intertrochanteric femur fracture status post IM nail POD 7 2) Left tibial plateau fracture status post external fixation POD 1 NWB to LLE no quad sets or leg lifts CKS except for PT PROM of knee 0-90deg daily dressing changes of hip and begin daily dressing changes POD 2 plan for home with [facility] tomorrow f/u with Chinedu or PA in 2 weeks DVT prophylaxis Jake Hutton/Fire Suppression [employer] PA September 30, 2017 06:28
--- NOTE | 2017-09-30 06:29 | HHI.FF ---
Face to Face Verification Diagnosis: (1) Tibia/fibula fracture (2) Intertrochanteric fracture of left hip Physical Therapy Gait training Hip: Hip fracture, Protocol: Left Knee: Total knee, Protocol: Left, Non weight bearing Canvas Knee Splint: Remove only with PT Left LE Weight Bearing: Non WB, No Strengthening, No Quad Sets Left LE Range of Motion: Passive ROM (0-90deg) Nursing Dressing Changes: Daily dressing change, Xeroform, Coverderm/Primapore I have seen patient Gaurav German on 09/30/17. My clinical findings support the need for the requested home health care services because: Ltd mobility - disease progression I certify that my clinical findings support that this patient is homebound because: Post-op weakness Jake Hutton/First Joanne OROZCO September 30, 2017 06:29
[2017-09-30] MEDS ORDERED: XARE10TA PO (06:30)
[2017-09-30] MEDS ORDERED: HYDR-3583 PO (06:30)
[2017-09-30 08:00] VITALS: BP 130/63; PULSE 80; PULSE 86; RESP 18; TEMP 97.9; O2SAT 97
[2017-09-30] MEDS: ENOXAPARIN SODIUM 30 MG/0.3 ML SYRINGE SQ SCH ×2 (08:23→20:20)
[2017-09-30] MEDS: CALCIUM/VITAMIN D 250 MG/125 U TAB PO SCH ×3 (08:28→18:24)
[2017-09-30] MEDS: CHOLECALCIFEROL (VIT D3) 1000 UNIT TAB PO SCH (08:28)
[2017-09-30] MEDS: REMOVE OLD PATCH T-DERMAL SCH (08:29)
[2017-09-30] MEDS: NICOTINE 21 MG/24 HR PATCH T-DERMAL SCH (08:29)
[2017-09-30] MEDS: SODIUM CHLORIDE 0.9% FLUSH 10 ML FLUSH IV FLUSH SCH ×2 (08:37→21:00)
[2017-09-30] MEDS ORDERED: ERGOCALCIFEROL (VIT D2) 50,000 UNIT CAP PO SCH (09:00)
[2017-09-30] MEDS: LACTATED RINGER'S 1000 ML INJ 1,000 ML IV SCH ×2 (10:09→22:27)
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
[2017-09-30 12:00] VITALS: BP 124/63; PULSE 89; RESP 18; TEMP 98.1; O2SAT 98
[2017-09-30] MEDS: FERROUS SULFATE 325 MG (65 MG ELEMENTAL IRON) TAB PO SCH (12:05)
[2017-09-30 16:00] VITALS: BP 109/62; PULSE 82; RESP 18; TEMP 97.9; O2SAT 97
[2017-09-30 20:00] VITALS: BP 130/69; PULSE 94; RESP 20; TEMP 97.9; O2SAT 96
[2017-10-01 00:15] VITALS: BP 130/60; PULSE 86; RESP 19; TEMP 98.3; O2SAT 97
[2017-10-01] MEDS: HYDROmorphone HCL PF 2 MG/ML VIAL IV PUSH PRN ×2 (04:04→13:56)
[2017-10-01] MEDS: oxyCODONE/ACETAMINOPHEN 10 MG/325 MG TAB PO PRN (05:51)
[2017-10-01] MEDS: ceFAZolin 2 GM PREMIX 50 ML IV SCH (05:51)
[2017-10-01 06:08] LABS: HEMATOCRIT 21.8 % (39.0-51.0); HEMOGLOBIN 7.8 GM/DL (13.0-17.0)
--- NOTE | 2017-10-01 07:05 | PD.ORT.PN ---
Subjective Subjective Remarks POD 8 s/p IMN left hip POD 2 s/p ORIF left tibial plateau doing well. pain controlled. reports soreness but improving. states out of bed with walker and doing well Objective Vitals Vital Signs Date Time Temp Pulse Resp B/P (MAP) Pulse Ox O2 Delivery O2 Flow Rate FiO2 10/01/17 00:15 98.3 86 19 130/60 (83) 97 09/30/17 20:00 97.9 94 20 130/69 (89) 96 09/30/17 16:00 97.9 82 18 109/62 (78) 97 09/30/17 15:25 18 09/30/17 12:53 19 09/30/17 12:00 98.1 89 18 124/63 (83) 98 09/30/17 08:00 97.9 80 18 130/63 (85) 97 09/30/17 08:00 97.9 86 18 130/63 (85) 97 I/O 09/30/17 09/30/17 09/30/17 10/01/17 10/01/17 10/01/17 07:00 15:00 23:00 07:00 15:00 23:00 Intake Total 500 ml 1000 ml Output Total 400 ml 600 ml Balance 100 ml 400 ml Intake Oral 500 ml 1000 ml Output Urine Total 400 ml 600 ml # Voids 1 # Bowel Movements 0 Result Diagram: 10/01/17 0410 Imaging Last 24 hours Impressions Chest X-Ray 09/22/17 1308 Signed Impressions: Service Date/Time: Friday, September 22, 2017 13:10 - CONCLUSION: No acute disease. Sb Noel MD Tibia/Fibula X-Ray 09/22/17 1220 Signed Impressions: Service Date/Time: Friday, September 22, 2017 12:52 - CONCLUSION: Severely comminuted ventricular fracture involving the proximal tibia. Comminuted nondisplaced fracture involving the proximal fibula. Sb Noel MD Hip and Pelvis X-Ray 09/22/17 8600 Signed Impressions: Service Date/Time: Friday, September 22, 2017 14:06 - CONCLUSION: 1. Oblique fracture through the trochanteric region of the proximal left femur. Sb Noel MD Elbow X-Ray 09/22/17 1220 Signed Impressions: Service Date/Time: Friday, September 22, 2017 13:07 - CONCLUSION: No acute fracture or joint dislocation. Sb Noel MD Objective Remarks Left lower extremity: dressings clean and dry. intact. NVI. +CKS Assessment & Plan Assessment and Plan 1) Left intertrochanteric femur fracture status post IM nail POD 8 2) Left tibial plateau fracture status post external fixation POD 2 NWB to LLE no quad sets or leg lifts CKS except for PT PROM of knee 0-90deg daily dressing changes of hip and begin daily dressing changes POD 2 plan for home with [facility] today ortho clear for discharge f/u with Chinedu or PA in 2 weeks DVT prophylaxis Jake Hutton/Pastry Cook Helper PA October 01, 2017 07:04
[2017-10-01 08:00] VITALS: BP 141/61; PULSE 85; RESP 16; TEMP 98.2; O2SAT 93
[2017-10-01] MEDS: REMOVE OLD PATCH T-DERMAL SCH (09:00)
[2017-10-01] MEDS: CALCIUM/VITAMIN D 250 MG/125 U TAB PO SCH ×2 (09:07→13:00)
[2017-10-01] MEDS: ENOXAPARIN SODIUM 30 MG/0.3 ML SYRINGE SQ SCH (09:07)
[2017-10-01] MEDS: CHOLECALCIFEROL (VIT D3) 1000 UNIT TAB PO SCH (09:07)
[2017-10-01] MEDS: NICOTINE 21 MG/24 HR PATCH T-DERMAL SCH (09:07)
[2017-10-01] MEDS: FERROUS SULFATE 325 MG (65 MG ELEMENTAL IRON) TAB PO SCH (09:07)
[2017-10-01] MEDS: SODIUM CHLORIDE 0.9% FLUSH 10 ML FLUSH IV FLUSH SCH (09:09)
[2017-10-01] MEDS ORDERED: FERR325T20 PO (09:40)
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
[2017-10-01] MEDS: LACTATED RINGER'S 1000 ML INJ 1,000 ML IV SCH (11:09)
[2017-10-01 12:00] VITALS: BP 106/67; PULSE 92; RESP 16; TEMP 97.9; O2SAT 98
[2017-10-01] MEDS ORDERED: WHEEMIS3 (14:48)
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
[2017-10-01 16:00] VITALS: BP 122/63; PULSE 85; RESP 15; TEMP 98.4; O2SAT 100
== END 2017-10-01 16:52 | disposition home health service (06) | DRG 481 ==
LOC: NEPE 12:10 → NEDA 13:50 → N06A 15:04 → OBSVTOIN 09-23 11:53
PROVIDERS: ADMIT Internal Medicine; ATTEND Internal Medicine
PROC: 0QSH35Z Reposition Left Tibia with External Fixation Device, Percutaneous Approach (ICD-10-PCS; principal; 2017-09-23 08:46)
PROC: 0QS706Z Reposition Left Upper Femur with Intramedullary Internal Fixation Device, Open Approach (ICD-10-PCS; 2017-09-23 08:46)
PROC: 0QSH04Z Reposition Left Tibia with Internal Fixation Device, Open Approach (ICD-10-PCS; 2017-09-29)
PROC: 0QPHX5Z Removal of External Fixation Device from Left Tibia, External Approach (ICD-10-PCS; 2017-09-29)
DX: S72.142A Displaced intertrochanteric fracture of left femur, initial encounter for closed fracture (principal); F17.213 Nicotine dependence, cigarettes, with withdrawal; D62 Acute posthemorrhagic anemia; S82.142A Displaced bicondylar fracture of left tibia, initial encounter for closed fracture; S82.832A Other fracture of upper and lower end of left fibula, initial encounter for closed fracture; V28.4XXA Motorcycle driver injured in noncollision transport accident in traffic accident, initial encounter; Y92.488 Other paved roadways as the place of occurrence of the external cause; Y93.89 Activity, other specified; M54.9 Dorsalgia, unspecified; G89.29 Other chronic pain; M19.90 Unspecified osteoarthritis, unspecified site; Z53.9 Procedure and treatment not carried out, unspecified reason; K59.00 Constipation, unspecified
CPT/HCPCS: 71045; 73070; 73502; 73560; 73590; 73700; 76000; 80048; 80053; 82652; 83735; 85014; 85018; 85025; 85610; 85730; 90471; 90714; 93005; 94150; 96374; 96375; 96376; C1713; G0378; J0131; J0690; J1100; J1170; J1580; J1650; J1885; J2175; J2250; J2270; J2370; J2405; J2710; J3010; J3370; J7030; J7050; J7120; L1830